=== PATIENT | male | born 1965 | race Caucasian/White ===

== ENCOUNTER 2023-06-28 12:30 | Emergency (ER) | payer MEDICAID, SELFPAY ==
[2023-06-28 12:33] VITALS: BP 149/87; PULSE 100; RESP 18; TEMP 36.6; O2SAT 97; BMI 27.5
--- NOTE | 2023-06-28 13:01 | XR_ITS ---
The [address] [address] Patient Name: CHANDRA SPENCER MRN: [id number] date: 1965 Sex: M Assigned Patient Location: ER Current Patient Location: ER Accession/Order Number: [id number] Exam Date: 06/28/2023 13:35 Report Date: 06/28/2023 13:58 At the request of: ROBERT GEORGE Procedure: XR foot RT min 3V EXAM: XR foot RT min 3V HISTORY: toe amputation, foot pain COMPARISON: None. TECHNIQUE: 3 views of the right foot FINDINGS: Status post amputation of the distal first phalanx. No cortical erosion or focal osteopenia to suggest acute osteomyelitis. Overlying soft tissue margin is smooth. There is no acute fracture or dislocation. No gas or radiopaque foreign body seen within the soft tissue. There is a small heel spur. XR/XR foot RT min 3V IMPRESSION: No acute process. Electronically authenticated by: KEY VENTURA Date: 06/28/2023 13:58
[2023-06-28 13:33] LABS: Basophils Absolute Auto 0.1 10^3/uL (0.0-0.1); Basophils Percent Auto 0.8 % (0.2-2.0); Eosinophils Absolute Auto 0.1 10^3/uL (0.0-0.7); Eosinophils Percent Auto 1.1 % (0.9-7.0); Hematocrit 45.2 % (42.0-54.0); Hemoglobin 15.4 g/dL (14.0-18.0); Immature Granulocytes Abs Auto 0.02 10^3/uL (0.00-0.03); Immature Granulocytes Pct Auto 0.3 % (0.0-0.5); Lymphocytes Absolute Auto 1.6 10^3/uL (1.2-3.8); Lymphocytes Percent Auto 25.2 % (20.5-60.0); Mean Corpuscular HGB Conc 34.1 g/dL (29.9-35.2); Mean Corpuscular Hemoglobin 28.7 pg (25.9-34.0); Mean Corpuscular Volume 84.3 fL (80.0-94.0); Mean Platelet Volume 10.3 fL (9.5-13.5); Monocytes Absolute Auto 0.4 10^3/uL (0.3-0.8); Monocytes Percent Auto 5.4 % (1.7-12.0); Neutrophils Absolute Auto 4.4 10^3/uL (1.4-6.5); Neutrophils Percent Auto 67.2 % (43.0-75.0); Platelet Count 250 10^3/uL (150-450); Red Blood Count 5.36 10^6/uL (4.70-6.10); White Blood Count 6.5 10^3/uL (4.0-11.0)
[2023-06-28] MEDS: 0.9 % SODIUM CHLORIDE 1,000 ML 999 ML IV (13:40)
[2023-06-28 13:42] LABS: Erythrocyte Sedimentation Rate 12 mm/hr (<=20)
[2023-06-28 14:00] LABS: Alanine Aminotransferase 43 U/L (16-63); Albumin Level 3.8 g/dL (3.4-5.0); Alkaline Phosphatase 105 U/L (46-116); Anion Gap 11.9; Aspartate Amino Transferase 15 U/L (15-37); BUN Creatinine Ratio 20.6; Bilirubin Total 0.3 mg/dL (0.2-1.0); Calcium 8.8 mg/dL (8.5-10.1); Carbon Dioxide 27.1 mmol/L (21.0-32.0); Chloride 100 mmol/L (98-107); Estimated GFR (African America >60 (>=60); Estimated GFR (Non-African Ame 59 (>=60); Globulin 3.7 g/dL; Glucose 338 mg/dL (74-106); Sodium 134 mmol/L (136-145); Total Protein 7.5 g/dL (6.4-8.2)
--- NOTE | 2023-06-28 14:02 | ED_ITS ---
HPI - Extremity Problem General Chief complaint: Extremity Problem, Nontraumatic Stated complaint: POSS. HIGH BLOOD PRESSURE/INFECTION IN R FOOT Time Seen by Provider: 06/28/23 12:41 Source: patient Mode of arrival: walk-in Limitations: no limitations History of Present Illness HPI Narrative: patient had partial amputation of right great toe at a hospital in [place] about 3 weeks ago. 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 He is working nearby. He wears steel toe boots. He presents with pain and swelling int he right great toe and has concern about possible infection. He is a diabetic and said his blood sugars have been between 300 and 500.] He had a temp of 100 and some nausea last night. Related Data Home Medications Medication Instructions Recorded Confirmed apixaban 5 mg tablet (Eliquis) 5 mg PO BID 06/28/23 06/28/23 insulin glargine 100 unit/mL 36 unit subcut DAILY 06/28/23 06/28/23 subcutaneous solution (Lantus U-100 Insulin) Previous Rx's Medication Instructions Recorded amoxicillin 875 mg-potassium 1 tab PO Q12H #14 tabs 06/28/23 clavulanate 125 mg tablet hydrocodone 5 mg-acetaminophen 325 1 tab PO Q6H PRN pain #10 tabs 06/28/23 mg tablet sulfamethoxazole 800 1 tab PO BID 7 days #14 tabs 06/28/23 mg-trimethoprim 160 mg tablet (Bactrim DS) Allergies Allergy/AdvReac Type Severity Reaction Status Date / Time No Known Drug Allergies Allergy Verified 06/28/23 12:39 Exam Narrative Exam Narrative: Nurses notes and vital signs reviewed and patient is not hypoxic. afebrile General: Well-appearing and in no apparent distress. Skin: Warm, dry, no pallor noted. Head: Normocephalic, atraumatic. Eye: Pupils are equal, round and EOMI. No scleral icterus. Ears, Nose, Mouth, and Throat: TM are clear, no nasal mucosal hypertrophy. Oral mucosa is moist, no posterior oropharynx erythema, uvula is mid-line Cardiovascular: Regular Rate and Rhythm without murmur, gallop or rub. Respiratory: No accessory muscle use or respiratory distress. Lungs are clear to auscultation, no wheezing, rales or rhonchi Musculoskeletal: Tenderness and swelling with erythema to the left great toe. Sutures are in place and I do not see any wound dehiscence. No proximal erythematous streaking. The remainder of the right foot is unremarkable. normal ROM, no calf or popliteal tenderness, no lower extremity edema/swelling GI: Abdomen is soft, non-distended. Normal bowel sounds. No tenderness to palpation. No rebound, guarding, or rigidity noted. Neurological: A&O x4. No cranial nerve dysfunction observed. No truncal ataxia. Moves all extremities. Sensation intact. Psychiatric: Cooperative and interactive. Normal mood and affect. Constitutional Vital Signs, click to edit/add: Last Vital Signs Temp 98 F 06/28/23 12:33 Pulse 100 H 06/28/23 12:33 Resp 18 06/28/23 12:33 BP 149/87 H 06/28/23 12:33 Pulse Ox 97 06/28/23 12:33 O2 Del Method Room Air 06/28/23 12:33 Course Vital Signs Vital signs: Vital Signs Temperature 98 F 06/28/23 12:33 Pulse Rate 100 H 06/28/23 12:33 Respiratory Rate 18 06/28/23 12:33 Blood Pressure 149/87 H 06/28/23 12:33 Pulse Oximetry 97 06/28/23 12:33 Oxygen Delivery Method Room Air 06/28/23 12:33 Temperature 98 F 06/28/23 12:33 Pulse Rate 100 H 06/28/23 12:33 Respiratory Rate 18 06/28/23 12:33 Blood Pressure 149/87 H 06/28/23 12:33 Pulse Oximetry 97 06/28/23 12:33 Oxygen Delivery Method Room Air 06/28/23 12:33 MDM - Extremity (Nontraumatic) MDM Narrative Medical decision making narrative: blood drawn and sent for testing including lactate, blood cultures, sedimentati on rate and CRP. X-rays of the right foot were also obtained and no osteomyelitis was noted by the radiologist. The patient was given a liter of normal saline IV fluid. He has normal white blood cell count but lactate is elevated at 2.9. Sedimentation rate is normal. CRP Normal. He was ordered to receive IV Vancomycin. He got low dose Toradol for pain. He was discharged home with prescriptions for Augmentin, Bactrim and a prescription for 10 [place] after O[facility] was reviewed. He just got twelve Hollywood tabs on 06/18/23. He was given referral information to see Dr Christianson/local podiatry group. Lab Data Attestation: I reviewed the patient's lab results. Labs: Lab Results 06/28/23 Range/Units 13:23 WBC 6.5 (4.0-11.0) 10^3/uL RBC 5.36 (4.70-6.10) 10^6/uL Hgb 15.4 (14.0-18.0) g/dL Hct 45.2 (42.0-54.0) % MCV 84.3 (80.0-94.0) fL MCH 28.7 (25.9-34.0) pg MCHC 34.1 (29.9-35.2) g/dL RDW 14.0 (11.0-15.0) % Plt Count 250 (150-450) 10^3/uL MPV 10.3 (9.5-13.5) fL Neut % (Auto) 67.2 (43.0-75.0) % Lymph % (Auto) 25.2 (20.5-60.0) % Prairie % (Auto) 5.4 (1.7-12.0) % Eos % (Auto) 1.1 (0.9-7.0) % Baso % (Auto) 0.8 (0.2-2.0) % Neut # (Auto) 4.4 (1.4-6.5) 10^3/uL Lymph # (Auto) 1.6 (1.2-3.8) 10^3/uL Pra[place] # (Auto) 0.4 (0.3-0.8) 10^3/uL Eos # (Auto) 0.1 (0.0-0.7) 10^3/uL Baso # (Auto) 0.1 (0.0-0.1) 10^3/uL Abs Immat Gran (auto) 0.02 (0.00-0.03) 10^3/uL Imm/Tot Granulo (auto) 0.3 (0.0-0.5) % ESR 12 (<=20) mm/hr Sodium 134 L (136-145) mmol/L Potassium 5.0 (3.5-5.1) mmol/L Chloride 100 (98-107) mmol/L Carbon Dioxide 27.1 (21.0-32.0) mmol/L Anion Gap 11.9 BUN 26.0 H (7.0-18.0) mg/dL Creatinine 1.26 (0.70-1.30) mg/dL Est GFR ( Amer) >60 (>=60) Est GFR (Non-Af Amer) 59 L (>=60) BUN/Creatinine Ratio 20.6 Glucose 338 H (74-106) mg/dL Lactate 2.4 H* (0.4-2.0) mmol/L Calcium 8.8 (8.5-10.1) mg/dL Total Bilirubin 0.3 (0.2-1.0) mg/dL AST 15 (15-37) U/L ALT 43 (16-63) U/L Alkaline Phosphatase 105 (46-116) U/L C-Reactive Protein <0.2 (<=1.0) mg/dL Total Protein 7.5 (6.4-8.2) g/dL Albumin 3.8 (3.4-5.0) g/dL Globulin 3.7 g/dL Albumin/Globulin Ratio 1.0 Imaging Data xr foot: Radiologist's impression: Patient Name: CHANDRA SPENCER MRN: [facility]:[id number] date: 1965 Sex: M Assigned Patient Location: ER Current Patient Location: ER Accession/Order Number: [id number] Exam Date: 06/28/2023 13:35 Report Date: 06/28/2023 13:58 At the request of: ROBERT GEORGE Procedure: XR foot RT min 3V EXAM: XR foot RT min 3V HISTORY: toe amputation, foot pain COMPARISON: None. TECHNIQUE: 3 views of the right foot FINDINGS: Status post amputation of the distal first phalanx. No cortical erosion or focal osteopenia to suggest acute osteomyelitis. Overlying soft tissue margin is smooth. There is no acute fracture or dislocation. No gas or radiopaque foreign body seen within the soft tissue. There is a small heel spur. IMPRESSION: No acute process. Electronically authenticated by: KEY VENTURA Date: 06/28/2023 13:58 Discharge Plan Discharge Chief Complaint: Extremity Problem, Nontraumatic Clinical Impression: Great toe pain, Cellulitis Patient Disposition: Home, Self-Care Time of Disposition Decision: 14:38 Prescriptions / Home Meds: New amoxicillin-pot clavulanate 875-125 mg tablet 1 tab PO Q12H Qty: 14 0RF sulfamethoxazole-trimethoprim [Bactrim DS] 800-160 mg tablet 1 tab PO BID 7 Days Qty: 14 0RF hydrocodone-acetaminophen 5-325 mg tablet 1 tab PO Q6H PRN (Reason: pain) Qty: 10 0RF No Action Eliquis 5 mg tablet 5 mg PO BID insulin glargine [Lantus U-100 Insulin] 100 unit/mL solution 36 unit subcut DAILY Instructions: Cellulitis (ED), Toe Amputation (DC) Stand Alone Forms: Portal Instructions Referrals: Robi Christianson DPM [Physician] - As soon as possible
[2023-06-28 14:03] LABS: C Reactive Protein <0.2 mg/dL (<=1.0)
[2023-06-28 14:04] LABS: Lactate/Lactic Acid 2.4 mmol/L (0.4-2.0)
[2023-06-28] MEDS: VANCOMYCIN HCL 1,000 MG in 0.9 % SODIUM CHLORIDE 250 ML 250 MG IV (14:30)
[2023-06-28] MEDS: INSULIN REGULAR 300 UNITS/3 ML 5 UNIT SUBQ (14:33)
== END 2023-06-28 15:39 | disposition home or self-care (01) ==
PROVIDERS: Emergency Provider Emergency Medicine
DX: M79.674 Pain in right toe(s) (principal); L03.031 Cellulitis of right toe; Z79.4 Long term (current) use of insulin; Z79.01 Long term (current) use of anticoagulants; Z89.411 Acquired absence of right great toe
CPT/HCPCS: 36415; 73630; 80053; 83605; 85025; 85652; 86140; 87040; 96374; 99285; J3370